=== PATIENT | male | born 1945 | race Caucasian/White ===

== ENCOUNTER 2018-04-25 11:47 | Emergency (ER) | payer MEDICARE, OTHER ==
[2018-04-25] MEDS ORDERED: NS(*) 0.9% 500 ML BAG 500 ML IV ONE (11:51)
[2018-04-25] MEDS ORDERED: NITROGLYCERIN 0.4 MG SUBL SL SCH (11:55)
[2018-04-25] MEDS ORDERED: fentaNYL CITR 100 MCG/2 ML AMP IVP ONE (11:55)
[2018-04-25] MEDS ORDERED: ASPIRIN 81 MG CHEW PO ONE (11:55)
[2018-04-25 12:06] LABS: PLATELET COUNT, AUTOMATED 166 K/uL (150-450)
[2018-04-25] MEDS ORDERED: LOSA100T67 PO (12:20)
[2018-04-25] MEDS ORDERED: ASPI-1471 PO (12:20)
[2018-04-25] MEDS ORDERED: SIMV-49 PO (12:20)
[2018-04-25] MEDS ORDERED: UBID1CAP94 PO (12:20)
[2018-04-25] MEDS ORDERED: CHOL10005 PO (12:20)
[2018-04-25] MEDS ORDERED: CALC500T6 PO (12:20)
--- NOTE | 2018-04-25 13:20 | ER Report ---
History and Physical Time Seen By MD: 11:50 Hx. of Stated Complaint: patient reports discomfort in chest and pain in left and right arm. this has been going on for 2 weeks. HPI/ROS CHIEF COMPLAINT: Left upper extremity pain, chest discomfort 2 weeks HISTORY OF PRESENT ILLNESS: Patient is a 72-year-old male here with complaints of left upper extremity pain which is worse with movement and position, midsternal chest discomfort which is been present for the past 2 weeks. Patient denies prior history of cardiac pathology, recently having a negative stress test and echo in September. Patient reports that he is fairly anxious because he is going on a vacation trip coming up. He also notes that he has been hypertensive in spite of taking his antihypertensive medications. Patient reports that he became more anxious today regarding his high blood pressure, chest discomfort and left upper extremity pain. Patient denies shortness of breath, cough, fevers or chills, nausea, vomiting, abdominal pain. Chest discomfort has since ceased prior to arrival but has been present for the past several weeks. Patient did take a full dose aspirin prior to arrival. REVIEW OF SYSTEMS: Constitutional: No fever, no chills. Eyes: No discharge. ENT: No sore throat. Cardiovascular: + chest discomfort prior to arrival, no palpitations. Respiratory: No cough, no shortness of breath. Gastrointestinal: No abdominal pain, no vomiting. Genitourinary: No hematuria. Musculoskeletal: No back pain, + LUE aching with movement Skin: No rashes. Neurological: No headache. Allergies: Coded Allergies: No Known Drug Allergies (Unverified , 04/25/18) Home Meds Reported Medications Aspirin (ASPIR 81) 81 Mg Tablet.dr, 81 MG PO QDAY, TAB 04/25/18 Calcium Carbonate (CALCIUM) 500 Mg Tablet, 1000 MG PO 04/25/18 Cholecalciferol (Vitamin D3) (VITAMIN D3) 1,000 Unit Tablet, 1000 UNIT PO, TAB 04/25/18 Ubidecarenone/Vit E Acetate (CO Q-10 100 MG SOFTGEL) 1 Each Capsule, 1 EACH PO, CAPSULE 04/25/18 Simvastatin (SIMVASTATIN) 20 Mg Tablet, 10 MG PO HS, TAB 04/25/18 Losartan Potassium (LOSARTAN POTASSIUM) 100 Mg Tablet, 100 MG PO QDAY 04/25/18 Constitutional Vital Sign - Last 24 Hours 8/1804/25/18 04/25/18 04/25/18 11:51 11:53 12:00 12:14 Temp 97.5 Pulse 66 Resp 20 B/P (MAP) 181/88 181/88 (119) 173/84 (113) 147/78 (101) Pulse Ox 94 O2 Delivery Room Air 04/25/18 04/25/18 04/25/18 04/25/18 12:17 12:30 12:47 13:00 Pulse 60 Resp 11 16 B/P (MAP) 136/73 (94) 126/77 (93) Pulse Ox 95 94 04/25/18 04/25/18 13:17 13:30 Pulse 68 Resp 18 B/P (MAP) 130/71 (90) Physical Exam General Appearance: The patient is alert, has no immediate need for airway protection and no signs of toxicity. Anxious appearing Eyes: Pupils equal and round no pallor or injection. ENT, Mouth: Mucous membranes are moist. Respiratory: There are no retractions, lungs are clear to auscultation. Cardiovascular: Regular rate and rhythm. Gastrointestinal: Abdomen is soft and non tender, no masses, bowel sounds normal. Neurological: No focal neurological deficits Skin: Warm and dry, no rashes. Musculoskeletal: Neck is supple non tender. Extremities are nontender, nonswollen and have full range of motion. DIFFERENTIAL DIAGNOSIS: After history and physical exam differential diagnosis was considered for chest pain including but not limited to myocardial ischemia, pericarditis pulmonary embolus, chest wall pain, pleural inflammation and pulmonary infectious causes, arthritis, anxiety Medical Decision Making Data Points Result Diagram: 04/25/18 1154 04/25/18 1154 Laboratory Hematology Test 04/25/18 11:54 Red Blood Count 4.97 M/uL (4.00-5.60) Mean Corpuscular Volume 93.0 fL (80.0-96.0) Mean Corpuscular Hemoglobin 32.5 pg (26.0-33.0) Mean Corpuscular Hemoglobin Concent 34.9 g/dL (32.0-36.0) Red Cell Distribution Width 14.2 % (11.5-14.5) Mean Platelet Volume 8.9 fL (7.2-11.1) Neutrophils (%) (Auto) 68.4 % (39.4-72.5) Lymphocytes (%) (Auto) 22.4 % (17.6-49.6) Monocytes (%) (Auto) 7.6 % (4.1-12.4) Eosinophils (%) (Auto) 0.4 % (0.4-6.7) Basophils (%) (Auto) 1.2 % (0.3-1.4) Nucleated RBC Relative Count (auto) 0.0 /100WBC Neutrophils # (Auto) 2.7 K/uL (2.0-7.4) Lymphocytes # (Auto) 0.9 K/uL (1.3-3.6) Monocytes # (Auto) 0.3 K/uL (0.3-1.0) Eosinophils # (Auto) 0.0 K/uL (0.0-0.5) Basophils # (Auto) 0.0 K/uL (0.0-0.1) Nucleated RBC Absolute Count (auto) 0.00 K/uL Prothrombin Time 13.2 seconds (12.0-14.4) Prothromb Time International Ratio 1.00 Activated Partial Thromboplast Time 33 seconds (23-35) Sodium Level 137 mmol/L (137-145) Potassium Level 4.1 mmol/L (3.5-5.0) Chloride Level 98 mmol/L (98-107) Carbon Dioxide Level 25 mmol/L (22-30) Blood Urea Nitrogen 13 mg/dl (9-21) Creatinine 0.80 mg/dl (0.66-1.25) Glomerular Filtration Rate Calc > 60.0 Random Glucose 99 mg/dl (75-110) Calcium Level 9.6 mg/dl (8.4-10.2) Total Bilirubin 1.0 mg/dl (0.2-1.3) Aspartate Amino Transf (AST/SGOT) 30 U/L (0-35) Alanine Aminotransferase (ALT/SGPT) 30 U/L (0-56) Alkaline Phosphatase 58 U/L (0-126) Troponin I < 0.012 ng/ml B-Type Natriuretic Peptide 109 pg/ml (0-100) Total Protein 7.9 g/dl (6.3-8.2) Albumin 5.0 g/dl (3.5-5.0) Chemistry Test 04/25/18 11:54 White Blood Count 4.0 k/uL (4.5-11.0) Red Blood Count 4.97 M/uL (4.00-5.60) Hemoglobin 16.1 g/dL (14.0-18.0) Hematocrit 46.2 % (42.0-52.0) Mean Corpuscular Volume 93.0 fL (80.0-96.0) Mean Corpuscular Hemoglobin 32.5 pg (26.0-33.0) Mean Corpuscular Hemoglobin Concent 34.9 g/dL (32.0-36.0) Red Cell Distribution Width 14.2 % (11.5-14.5) Platelet Count 166 K/uL (150-450) Mean Platelet Volume 8.9 fL (7.2-11.1) Neutrophils (%) (Auto) 68.4 % (39.4-72.5) Lymphocytes (%) (Auto) 22.4 % (17.6-49.6) Monocytes (%) (Auto) 7.6 % (4.1-12.4) Eosinophils (%) (Auto) 0.4 % (0.4-6.7) Basophils (%) (Auto) 1.2 % (0.3-1.4) Nucleated RBC Relative Count (auto) 0.0 /100WBC Neutrophils # (Auto) 2.7 K/uL (2.0-7.4) Lymphocytes # (Auto) 0.9 K/uL (1.3-3.6) Monocytes # (Auto) 0.3 K/uL (0.3-1.0) Eosinophils # (Auto) 0.0 K/uL (0.0-0.5) Basophils # (Auto) 0.0 K/uL (0.0-0.1) Nucleated RBC Absolute Count (auto) 0.00 K/uL Prothrombin Time 13.2 seconds (12.0-14.4) Prothromb Time International Ratio 1.00 Activated Partial Thromboplast Time 33 seconds (23-35) Glomerular Filtration Rate Calc > 60.0 Calcium Level 9.6 mg/dl (8.4-10.2) Total Bilirubin 1.0 mg/dl (0.2-1.3) Aspartate Amino Transf (AST/SGOT) 30 U/L (0-35) Alanine Aminotransferase (ALT/SGPT) 30 U/L (0-56) Alkaline Phosphatase 58 U/L (0-126) Troponin I < 0.012 ng/ml B-Type Natriuretic Peptide 109 pg/ml (0-100) Total Protein 7.9 g/dl (6.3-8.2) Albumin 5.0 g/dl (3.5-5.0) Coagulation Test 04/25/18 11:54 Prothrombin Time 13.2 seconds Prothromb Time International Ratio 1.00 Activated Partial Thromboplast Time 33 seconds EKG/Imaging EKG Interpretation Test Reason : CP Blood Pressure : / mmHG Vent. Rate : 058 BPM Atrial Rate : 058 BPM P-R Int : 180 ms QRS Dur : 102 ms QT Int : 392 ms P-R-T Axes : 048 029 037 degrees QTc Int : 384 ms Sinus bradycardia Possible Left atrial enlargement Borderline ECG No previous ECGs available Confirmed by OSMIN JENKINS ([id number]) on 04/26/2018 6:37:51 AM Monitor Interpretation: Normal Sinus Rhythm Imaging CHEST PA AND LAT Additional pertinent History: Chest pain COMPARISON STUDIES: None FINDINGS: Support lines and catheters: None Lungs and Pleura: Focal area of scarring/atelectasis in the right lower lung. Remainder lung ochoa are clear. No consolidations or effusions. Heart and vasculature: Heart and hilar structures well-maintained. Lindy and Mediastinum: Negative. Bones and Chest wall: 25% anterior wedging changes at T8 and 9. Upper Abdomen: Negative. r IMPRESSION: 1. Focal area of scarring/atelectasis in the right lower lung. No acute cardiopulmonary disease. ED Course/Re-evaluation ED Course Patient is a 72-year-old male here with complaints of mild chest discomfort which has since resolved, left upper extremity soreness which is present with movement and range of motion of the shoulder and arm. Patient has no prior history of cardiac pathology however does have history of hypertension currently on antihypertensives. He reports being anxious due to an upcoming trip and concurrently has been noticing that his blood pressure has been elevated prompting evaluation. Throughout the course of his ED stay, his blood pressure significantly improved without intervention. He was given fluid resuscitation and had taken a full dose aspirin prior to arrival. Nitroglycerin was held due to lack of chest pain or discomfort. EKG showed no ischemic changes. Symptoms have been present for approximately 2 weeks and a troponin was negative at time of evaluation. Chest x-ray showed no acute findings. Patient was updated regarding the findings voiced understanding. Patient was stable at time of discharge. Decision to Disposition Date: Apr 25, 2018 Decision to Disposition Time: 13:30 Depart Departure Latest Vital Signs Vital Signs Date Time Temp Pulse Resp B/P (MAP) Pulse Ox O2 Delivery O2 Flow Rate FiO2 04/25/18 13:30 130/71 (90) 04/25/18 13:17 68 18 04/25/18 12:47 94 04/25/18 11:51 97.5 Room Air Impression: Primary Impression: Arm pain Additional Impressions: Chest discomfort Hypertension Condition: Improved Disposition: HOME OR SELF-CARE Patient Instructions: Arm Pain (ED), Hypertension (ED) Additional Instructions: Please follow-up with her family doctor in the next week. Please return promptly if you develop chest pain, shortness breath, fevers or chills, worsening pain. Problem Qualifiers LIZETTE ENCARNACION DO Apr 25, 2018 13:20
--- NOTE | 2018-04-25 13:29 | RADIOLOGY IMAGING REPORT ---
FACILITY: [facility] - [place] PATIENT NAME: Frandy Leiva : 1945 MR: [id number] V: [id number] EXAM DATE: ORDERING PHYSICIAN: LIZETTE ENCARNACION TECHNOLOGIST: Location: [facility] - [place] Patient: Frandy Leiva : 1945 Visit/Account:[id number] Date of Sevice: 04/25/2018 CHEST PA AND LAT Additional pertinent History: Chest pain COMPARISON STUDIES: None FINDINGS: Support lines and catheters: None Lungs and Pleura: Focal area of scarring/atelectasis in the right lower lung. Remainder lung ochoa are clear. No consolidations or effusions. Heart and vasculature: Heart and hilar structures well-maintained. Lindy and Mediastinum: Negative. Bones and Chest wall: 25% anterior wedging changes at T8 and 9. Upper Abdomen: Negative. r IMPRESSION: 1. Focal area of scarring/atelectasis in the right lower lung. No acute cardiopulmonary disease. Report Dictated By: Thaddeus Acevedo MD at 04/25/2018 1:23 PM Report E-Signed By: Thaddeus Acevedo MD at 04/25/2018 1:26 PM [id number]
[2018-04-25 13:30] VITALS: BP 130/71
--- NOTE | 2018-04-25 17:12 | EKG ---
FACILITY: [facility] PATIENT NAME: RODGER ROTH : [id number] MR: [id number] V: [id number] EXAM DATE: ORDERING PHYSICIAN: LIZETTE ENCARNACION TECHNOLOGIST: JAYA Garcia Reason : CP Blood Pressure : / mmHG Vent. Rate : 058 BPM Atrial Rate : 058 BPM P-R Int : 180 ms QRS Dur : 102 ms QT Int : 392 ms P-R-T Axes : 048 029 037 degrees QTc Int : 384 ms Sinus bradycardia Possible Left atrial enlargement Borderline ECG No previous ECGs available Confirmed by OSMIN JENKINS ([id number]) on 04/26/2018 6:37:51 AM Referred By: SHASHANK Confirmed By:OSMIN JENKINS
== END 2018-04-25 13:42 | disposition home or self-care (01) ==
LOC: ER 12:00
DX: M79.602 Pain in left arm (principal); M79.601 Pain in right arm; R07.9 Chest pain, unspecified; I10 Essential (primary) hypertension; R00.1 Bradycardia, unspecified
CPT/HCPCS: 71046; 82040; 82247; 82310; 82374; 82435; 82565; 82947; 83880; 84075; 84132; 84155; 84295; 84450; 84460; 84484; 84520; 85025; 85610; 85730; 93005; 99283